=== PATIENT | male | born 1980 | race Two or more races ===

== ENCOUNTER 2016-08-16 16:42 | Emergency (ER) | payer OTHER ==
--- NOTE | 2016-08-16 17:16 | RAD ---
FOOT LEFT 3 VIEWS HISTORY: Injury. COMPARISONS: None. FINDINGS: 3 views of the left foot demonstrate normal bony mineralization. There is a subtle lucency identified involving the tuft of the distal phalanx of the great toe. The joint spaces are well-maintained. No focal soft tissue abnormalities are seen. IMPRESSION: 1. A subtle fracture of the distal aspect of the distal phalanx of the left great toe.
[2016-08-16] MEDS ORDERED: HYDROCODONE/ACETAMINOPHEN 5/325MG TABLET ONE (17:27)
== END 2016-08-16 17:45 | disposition home or self-care (01) ==
LOC: ED 16:42
DX: S92.422A Displaced fracture of distal phalanx of left great toe, initial encounter for closed fracture (principal); V09.1XXA Pedestrian injured in unspecified nontraffic accident, initial encounter; Y92.69 Other specified industrial and construction area as the place of occurrence of the external cause; Y99.0 Civilian activity done for income or pay
CPT/HCPCS: 73630; 99283 ×2; A9270